=== PATIENT | female | born 1950 | race Caucasian/White ===

== ENCOUNTER → 2017-05-28 | Outpatient (CLI) | payer OTHER ==
[2017-05-28 12:53] LABS: ASPARTATE AMINO TRANSFERASE 17 U/L (15-37); BLOOD UREA NITROGEN 20 mg/dL (7-18)
== END | disposition home or self-care (01) ==
LOC: CFH 07:50
PROVIDERS: ATTEND Internal Medicine
DX: E11.8 Type 2 diabetes mellitus with unspecified complications (principal); I10 Essential (primary) hypertension
CPT/HCPCS: 36415; 80053; 80061; 82043; 82570; 83036; 85025

== ENCOUNTER → 2017-11-08 | Outpatient (CLI) | payer OTHER | LOC: CFH 16:47 | PROVIDERS: ATTEND Physician Assistant Medical | DX: R06.02 Shortness of breath (principal) | CPT/HCPCS: 71020 ==

== ENCOUNTER → 2017-11-08 | Outpatient (CLI) | payer OTHER ==
[2017-11-08 17:38] LABS: HEMATOCRIT 48.2 % (34.6-47.8); HEMOGLOBIN 15.9 g/dL (11.7-16.4); WHITE BLOOD COUNT 8.5 x10^3/uL (3.4-10)
== END | disposition home or self-care (01) ==
LOC: LAB 17:18
PROVIDERS: ATTEND Physician Assistant Medical
DX: R06.02 Shortness of breath (principal)
CPT/HCPCS: 36415; 85025

== ENCOUNTER → 2018-11-11 | Outpatient (CLI) | payer OTHER | END | disposition home or self-care (01) | LOC: CFH 11:03 | PROVIDERS: ATTEND Otolaryngology | DX: J32.3 Chronic sphenoidal sinusitis (principal); J34.89 Other specified disorders of nose and nasal sinuses | CPT/HCPCS: 70486 ==

== ENCOUNTER → 2019-03-06 | Outpatient (CLI) | payer OTHER ==
[2019-03-06 12:56] LABS: CHLORIDE 103 mmol/L (98-107)
[2019-03-06 13:04] LABS: HEMOGLOBIN A1C 6.3 % (4.2-6.3)
[2019-03-06 13:13] LABS: BASOPHILS # (AUTO) 0.02 x10^3/uL (0-0.1); BASOPHILS % (AUTO) 0 % (0-1); EOSINOPHILS # (AUTO) 0.01 x10^3/uL (0-0.4); EOSINOPHILS % (AUTO) 0 % (1-7); LYMPHOCYTES # (AUTO) 1.19 x10^3/uL (1-3.4); LYMPHOCYTES % (AUTO) 15 % (22-44); MD SCAN; MEAN CORPUSCULAR HEMOGLOBIN 28.5 pg (27.0-34.8); MEAN CORPUSCULAR VOLUME 86.6 fL (80-100); MEAN PLATELET VOLUME 10.5 fL (7.4-10.4); MONOCYTES # (AUTO) 0.25 x10^3/uL (0.2-0.8); MONOCYTES % (AUTO) 3 % (2-9); NEUTROPHILS # (AUTO) 6.29 x10^3/uL (1.8-6.8); NEUTROPHILS % (AUTO) 81 % (42-75); PLATELET COUNT 233 x10^3/uL (130-400); RED BLOOD COUNT 5.84 x10^6/uL (3.82-5.3); RED CELL DISTRIBUTION WIDTH 13.8 % (9.6-15.2)
[2019-03-06 13:22] LABS: ALANINE AMINOTRANSFERASE 34 U/L (12-78); ALKALINE PHOSPHATASE 81 U/L (45-117); ANION GAP 9 mmol/L (5-15); BILIRUBIN,TOTAL 0.8 mg/dL (0.2-1.0); CALCIUM 10.3 mg/dL (8.5-10.1); CHOL/HDL RATIO 2.6; CHOLESTEROL, TOTAL 161 mg/dL (140-239); CREATININE 0.85 mg/dL (0.55-1.02); HDL CHOL % 39 % (28-40); HDL CHOLESTEROL (DIRECT) 62 mg/dL (40-60); LDL CHOLESTEROL,CALCULATED 75 mg/dL (54-169); LDL/HDL RATIO 1.2 (0.5-3.0); TOTAL PROTEIN 8.1 g/dL (6.4-8.2); TRIGLYCERIDES 120 mg/dL (50-200); VLDL CHOLESTEROL 24 mg/dL (0-25)
== END | disposition home or self-care (01) ==
LOC: CFH 11:36
PROVIDERS: ATTEND Internal Medicine
DX: E11.8 Type 2 diabetes mellitus with unspecified complications (principal); E55.9 Vitamin D deficiency, unspecified; E78.5 Hyperlipidemia, unspecified; E66.01 Morbid (severe) obesity due to excess calories
CPT/HCPCS: 36415; 80053; 80061; 82043; 82306; 82570; 82607; 83036; 85025

== ENCOUNTER → 2019-03-09 | Outpatient (CLI) | payer OTHER | END | disposition home or self-care (01) | LOC: CVU 16:19 | PROVIDERS: ATTEND Obstetrics & Gynecology Female Pelvic Medicine and Reconstructive Surgery | DX: I35.1 Nonrheumatic aortic (valve) insufficiency (principal); I35.0 Nonrheumatic aortic (valve) stenosis; I35.8 Other nonrheumatic aortic valve disorders; I11.9 Hypertensive heart disease without heart failure | CPT/HCPCS: 93306 ==

== ENCOUNTER → 2019-03-09 | Outpatient (CLI) | payer OTHER | END | disposition home or self-care (01) | LOC: CFH 14:21 | PROVIDERS: ATTEND Obstetrics & Gynecology Female Pelvic Medicine and Reconstructive Surgery | DX: Z12.31 Encounter for screening mammogram for malignant neoplasm of breast (principal); M85.88 Other specified disorders of bone density and structure, other site; E66.9 Obesity, unspecified; I35.1 Nonrheumatic aortic (valve) insufficiency; Z78.0 Asymptomatic menopausal state | CPT/HCPCS: 76830; 77080; 77067 ==

== ENCOUNTER → 2019-12-30 | Outpatient (CLI) | payer OTHER ==
[2019-12-30 13:37] LABS: CHLORIDE 104 mmol/L (98-107)
[2019-12-30 13:48] LABS: BASOPHILS # (AUTO) 0.05 x10^3/uL (0-0.1); BASOPHILS % (AUTO) 1 % (0-1); EOSINOPHILS # (AUTO) 0.71 x10^3/uL (0-0.4); EOSINOPHILS % (AUTO) 11 % (1-7); LYMPHOCYTES # (AUTO) 1.41 x10^3/uL (1-3.4); LYMPHOCYTES % (AUTO) 22 % (22-44); MD SCAN; MEAN CORPUSCULAR HEMOGLOBIN 28.6 pg (27.0-34.8); MEAN CORPUSCULAR HGB CONC 33.1 g/dL (32.4-35.8); MEAN CORPUSCULAR VOLUME 86.3 fL (80-100); MEAN PLATELET VOLUME 10.9 fL (7.4-10.4); MONOCYTES # (AUTO) 0.49 x10^3/uL (0.2-0.8); MONOCYTES % (AUTO) 8 % (2-9); NEUTROPHILS # (AUTO) 3.88 x10^3/uL (1.8-6.8); NEUTROPHILS % (AUTO) 59 % (42-75); PLATELET COUNT 252 x10^3/uL (130-400); RED BLOOD COUNT 5.44 x10^6/uL (3.82-5.3); RED CELL DISTRIBUTION WIDTH 14.4 % (9.6-15.2)
[2019-12-30 13:52] LABS: ALANINE AMINOTRANSFERASE 24 U/L (12-78); ALBUMIN 3.6 g/dL (3.4-5.0); ALKALINE PHOSPHATASE 85 U/L (45-117); ANION GAP 6 mmol/L (5-15); BILIRUBIN,TOTAL 0.9 mg/dL (0.2-1.0); CALCIUM 9.7 mg/dL (8.5-10.1); CHOL/HDL RATIO 2.6; CHOLESTEROL, TOTAL 161 mg/dL (140-239); CREATININE 0.77 mg/dL (0.55-1.02); HDL CHOL % 38 % (28-40); HDL CHOLESTEROL (DIRECT) 61 mg/dL (40-60); LDL CHOLESTEROL,CALCULATED 72 mg/dL (54-169); LDL/HDL RATIO 1.2 (0.5-3.0); TOTAL PROTEIN 7.5 g/dL (6.4-8.2); TRIGLYCERIDES 140 mg/dL (50-200); VLDL CHOLESTEROL 28 mg/dL (0-25)
== END | disposition home or self-care (01) ==
LOC: CFH 08:46
PROVIDERS: ATTEND Internal Medicine
DX: E11.9 Type 2 diabetes mellitus without complications (principal); E55.9 Vitamin D deficiency, unspecified; E78.5 Hyperlipidemia, unspecified; I10 Essential (primary) hypertension; K21.9 Gastro-esophageal reflux disease without esophagitis
CPT/HCPCS: 36415; 80053; 80061; 82043; 82306; 82570; 83036; 84443; 85025

== ENCOUNTER 2020-01-12 13:53 | Outpatient (CLI) | payer OTHER ==
[2020-01-12 14:50] LABS: BASOPHILS # (AUTO) 0.11 x10^3/uL (0-0.1); BASOPHILS % (AUTO) 2 % (0-1); EOSINOPHILS # (AUTO) 0.84 x10^3/uL (0-0.4); EOSINOPHILS % (AUTO) 11 % (1-7); LYMPHOCYTES # (AUTO) 1.99 x10^3/uL (1-3.4); LYMPHOCYTES % (AUTO) 27 % (22-44); MD NO; MEAN CORPUSCULAR HEMOGLOBIN 28.5 pg (27.0-34.8); MEAN CORPUSCULAR HGB CONC 33.1 g/dL (32.4-35.8); MEAN CORPUSCULAR VOLUME 86.2 fL (80-100); MEAN PLATELET VOLUME 10.8 fL (7.4-10.4); MONOCYTES # (AUTO) 0.66 x10^3/uL (0.2-0.8); MONOCYTES % (AUTO) 9 % (2-9); NEUTROPHILS # (AUTO) 3.83 x10^3/uL (1.8-6.8); NEUTROPHILS % (AUTO) 52 % (42-75); PLATELET COUNT 215 x10^3/uL (130-400); RED BLOOD COUNT 5.34 x10^6/uL (3.82-5.3); RED CELL DISTRIBUTION WIDTH 14.6 % (9.6-15.2)
[2020-01-12 15:01] LABS: CULTURE INDICATED? YES; MICROSCOPIC INDICATED
== END 2020-01-12 23:59 | disposition home or self-care (01) ==
LOC: CFH 13:53
PROVIDERS: ATTEND Nurse Practitioner Family
DX: R05 Cough (principal); J06.9 Acute upper respiratory infection, unspecified; E11.8 Type 2 diabetes mellitus with unspecified complications; E78.5 Hyperlipidemia, unspecified; I10 Essential (primary) hypertension
CPT/HCPCS: 36415; 71046; 81001; 83880; 85025; 87086

== ENCOUNTER → 2020-03-18 | Outpatient (CLI) | payer OTHER ==
[2020-03-18 13:58] LABS: MEAN CORPUSCULAR HEMOGLOBIN 28.7 pg (27.0-34.8); MEAN CORPUSCULAR HGB CONC 32.8 g/dL (32.4-35.8); MEAN CORPUSCULAR VOLUME 87.5 fL (80-100); MEAN PLATELET VOLUME 10.6 fL (7.4-10.4); PLATELET COUNT 239 x10^3/uL (130-400); RED BLOOD COUNT 5.43 x10^6/uL (3.82-5.3); RED CELL DISTRIBUTION WIDTH 15.6 % (9.6-15.2)
[2020-03-18 14:00] LABS: MD SCAN
[2020-03-18 14:02] LABS: BASOPHILS # (AUTO) 0.06 x10^3/uL (0-0.1); BASOPHILS % (AUTO) 1 % (0-1); EOSINOPHILS # (AUTO) 1.01 x10^3/uL (0-0.4); EOSINOPHILS % (AUTO) 12 % (1-7); LYMPHOCYTES # (AUTO) 1.64 x10^3/uL (1-3.4); LYMPHOCYTES % (AUTO) 20 % (22-44); MONOCYTES # (AUTO) 0.56 x10^3/uL (0.2-0.8); MONOCYTES % (AUTO) 7 % (2-9); NEUTROPHILS # (AUTO) 4.91 x10^3/uL (1.8-6.8); NEUTROPHILS % (AUTO) 60 % (42-75)
[2020-03-18 14:25] LABS: CHLORIDE 104 mmol/L (98-107)
[2020-03-18 14:35] LABS: ANION GAP 5 mmol/L (5-15); CALCIUM 10.2 mg/dL (8.5-10.1); CREATININE 0.83 mg/dL (0.55-1.02)
== END | disposition home or self-care (01) ==
LOC: CFH 10:14
PROVIDERS: ATTEND Internal Medicine Cardiovascular Disease
DX: J18.9 Pneumonia, unspecified organism (principal); R05 Cough; R06.02 Shortness of breath; R53.81 Other malaise
CPT/HCPCS: 36415; 80048; 85025

== ENCOUNTER → 2020-04-05 | Outpatient (CLI) | payer OTHER | END | disposition home or self-care (01) | LOC: CFH 12:41 | PROVIDERS: ATTEND Physician Assistant Medical | DX: R06.02 Shortness of breath (principal); R09.02 Hypoxemia; R05 Cough; I27.20 Pulmonary hypertension, unspecified | CPT/HCPCS: 71250 ==

== ENCOUNTER → 2020-04-14 | Outpatient (CLI) | payer OTHER | END | disposition home or self-care (01) | LOC: CFH 10:15 | PROVIDERS: ATTEND Internal Medicine | DX: J96.21 Acute and chronic respiratory failure with hypoxia (principal) | CPT/HCPCS: 36415; 86140; 86200; 86225; 86235; 86431 ==

== ENCOUNTER → 2020-04-15 | Outpatient (CLI) | payer OTHER | END | disposition home or self-care (01) | LOC: CFH 15:55 | PROVIDERS: ATTEND Internal Medicine | DX: J32.2 Chronic ethmoidal sinusitis (principal); J96.21 Acute and chronic respiratory failure with hypoxia; E11.9 Type 2 diabetes mellitus without complications | CPT/HCPCS: 76380 ==

== ENCOUNTER → 2020-04-19 | Outpatient (CLI) | payer OTHER | END | disposition home or self-care (01) | LOC: CVU 15:57 | PROVIDERS: ATTEND Internal Medicine | DX: I06.1 Rheumatic aortic insufficiency (principal); I11.9 Hypertensive heart disease without heart failure | CPT/HCPCS: 93306 ==

== ENCOUNTER → 2020-09-23 | Outpatient (CLI) | payer OTHER | END | disposition home or self-care (01) | LOC: CFH 11:22 | PROVIDERS: ATTEND Internal Medicine | DX: M17.0 Bilateral primary osteoarthritis of knee (principal); M25.462 Effusion, left knee; M25.461 Effusion, right knee ==

== ENCOUNTER 2021-01-27 10:06 | Emergency (ER) | payer OTHER ==
[~2021-01-27] VITALS: Ht 175.3 cm; Wt 145.2 kg
[2021-01-27 10:21] VITALS: BP 112/37
--- NOTE | 2021-01-27 10:27 | NUR ---
PT AMBULATED BACK TO ROOM WITHOUT DIFFICULTY.
--- NOTE | 2021-01-27 11:31 | NUR ---
PT HAS BEEN EXPERIENCING VAGINAL BLEEDING. STRAIGHT CATH URINE OBTAINED AND AWAITING ULTRASOUND.
[2021-01-27 11:42] LABS: MICROSCOPIC NOT IND
--- NOTE | 2021-01-27 11:55 | NUR ---
BREAK RN: US AT BEDSIDE.
--- NOTE | 2021-01-27 12:24 | NUR ---
BREAK RN: REPORT BACK TO DELICIA ESTRADA.
== END 2021-01-27 12:57 | disposition home or self-care (01) ==
LOC: ED 12:40
DX: N93.9 Abnormal uterine and vaginal bleeding, unspecified (principal); R10.2 Pelvic and perineal pain
CPT/HCPCS: 76830; 81003; 99284

== ENCOUNTER → 2021-03-23 | Outpatient (CLI) | payer OTHER ==
[~2021-03-23] MED LIST: ALBU8.5H8 INH; AMIT10TA PO; CELE200C PO; FLUT1DIS5 IH; FLUT9.9S NAS; HYDR25TA6 PO; LOSA100T14 PO; METF500T17 PO; OMEP20TA62 PO; PRED10TA PO
== END | disposition home or self-care (01) ==
LOC: STAR 15:06
PROVIDERS: ATTEND Obstetrics & Gynecology Female Pelvic Medicine and Reconstructive Surgery
DX: Z01.818 Encounter for other preprocedural examination (principal); N95.0 Postmenopausal bleeding; R93.89 Abnormal findings on diagnostic imaging of other specified body structures; Z20.822 Contact with and (suspected) exposure to COVID-19
CPT/HCPCS: 93005; U0003

== ENCOUNTER 2021-03-27 05:29 | Day surgery (SDC) | payer OTHER ==
[~2021-03-27] VITALS: Ht 175.3 cm; Wt 144.4 kg
[2021-03-27] MEDS ORDERED: CHLORHEXIDINE 15 ML UDC PO ONE (06:30)
[2021-03-27] MEDS ORDERED: LACTATED RINGERS 1,000 ML IV SCH ×2 (06:30→08:30)
[2021-03-27 06:35] VITALS: BP 173/95
[2021-03-27] MEDS ORDERED: BUPIVACAINE/PF 0.25% ONE (06:50)
[2021-03-27] MEDS ORDERED: EPINEPHRINE 1 MG/ML, 1ML ONE (06:50)
[2021-03-27] MEDS ORDERED: SILVER NITRATE STICK TP ONE (06:51)
[2021-03-27] MEDS ORDERED: FENTANYL PF 100 MCG/2ML ONE (07:27)
[2021-03-27] MEDS ORDERED: MIDAZOLAM 1 MG/ML, 2ML ONE (07:28)
[2021-03-27] MEDS ORDERED: KETOROLAC 30 MG/1 ML ONE (07:34)
[2021-03-27] MEDS ORDERED: BUPIVACAINE/PF-EPI 0.25% 1:200K INFIL ONE (07:47)
[2021-03-27] MEDS ORDERED: ACETAMINOPHEN 325 MG TABLET PO PRN (08:00)
[2021-03-27] MEDS ORDERED: LABETALOL 5MG/ML, 20ML IV PRN (08:00)
[2021-03-27] MEDS ORDERED: hydrALAzine 20 MG/ML, 1ML IV PRN (08:00)
[2021-03-27] MEDS ORDERED: PROMETHAZINE 25 MG/ML, 1ML IVPush PRN (08:00)
[2021-03-27] MEDS ORDERED: HYDROmorphone 1 MG/ML, 1ML INJ IVPush PRN (08:00)
[2021-03-27] MEDS ORDERED: METHOCARBAMOL 1,000 MG in DEXTROSE 5% 100 ML IV PRN (08:00)
[2021-03-27] MEDS ORDERED: FENTANYL PF 100 MCG/2ML IV PRN (08:00)
[2021-03-27] MEDS ORDERED: OXYcodone 5 MG/5 ML ORAL.SOL UDC PO PRN (08:00)
[2021-03-27] MEDS ORDERED: LORazepam 2 MG/ML, 1ML IVPush PRN (08:00)
[2021-03-27] MEDS ORDERED: PROMETHAZINE 25 MG SUPP PR PRN (08:00)
[2021-03-27] MEDS ORDERED: ONDANSETRON 2MG/ML, 2ML IVPush PRN ×2 (08:00→08:30)
[2021-03-27] MEDS ORDERED: CEFAZOLIN 1,000 MG ONE (08:02)
[2021-03-27] MEDS ORDERED: PROPOFOL 10 MG/ML, 20ML ONE (08:02)
[2021-03-27] MEDS ORDERED: DEXAMETHASONE 4 MG/ML, 1ML ONE (08:02)
[2021-03-27] MEDS ORDERED: ONDANSETRON 2MG/ML, 2ML ONE (08:02)
[2021-03-27] MEDS ORDERED: IBUPROFEN 600 MG TABLET PO PRN (08:30)
[2021-03-27] MEDS ORDERED: HYDROcodone/APAP 5/325 TABLET PO PRN (08:30)
[2021-03-27] MEDS ORDERED: OXYcodone 5 MG/5 ML ORAL.SOL UDC ONE (08:52)
== END 2021-03-27 13:10 | disposition home or self-care (01) ==
LOC: OR 05:29
PROVIDERS: ATTEND Obstetrics & Gynecology Female Pelvic Medicine and Reconstructive Surgery
DX: N95.0 Postmenopausal bleeding (principal); N84.0 Polyp of corpus uteri; I10 Essential (primary) hypertension; E11.9 Type 2 diabetes mellitus without complications; Z79.84 Long term (current) use of oral hypoglycemic drugs; Z79.899 Other long term (current) drug therapy; Z88.8 Allergy status to other drugs, medicaments and biological substances
CPT/HCPCS: 58558; 82962; 88305; J0171; J0690; J1100; J1885; J2250; J2405; J2704; J3010; J7120